=== PATIENT | female | born 1945 | race Caucasian/White ===

== ENCOUNTER 2020-06-19 14:59 | Inpatient (IN) | payer MEDICARE ==
[~2020-06-19] VITALS: Ht 157.5 cm; Wt 59.4 kg
[2020-06-19 15:50] LABS: BASOPHILS % (AUTO) 0.9 % (0.0-5.0); HEMATOCRIT 29.6 % (36-48); LYMPHOCYTES % (AUTO) 23.6 % (21.0-51.0); MEAN CORPUSCULAR HEMOGLOBIN 26.9 pg (27.0-33.0); MEAN CORPUSCULAR HGB CONC 30.4 g/dL (32.0-36.0); MEAN CORPUSCULAR VOLUME 88.6 fL (79-99); MONOCYTES % (AUTO) 13.7 % (3.0-13.0); NEUTROPHILS % (AUTO) 55.4 % (40.0-77.0); PLATELET COUNT (AUTO) 209 K/uL (130-400); RED BLOOD CELL COUNT(AUTO) 3.34 MIL/uL (4.00-5.50); RED CELL DISTRIBUTION WIDTH 16.3 % (11.0-15.5); WHITE BLOOD COUNT (AUTO) 4.5 K/uL (4.8-10.8)
[2020-06-19 16:09] LABS: PROTHROMBIN TIME 10.9 SEC (9.6-11.6)
[2020-06-19 16:10] LABS: CREATININE 0.9 mg/dL (0.5-1.5)
[2020-06-19 16:11] LABS: PARTIAL THROMBOPLASTIN TIME 21.4 SEC (26.3-35.5)
[2020-06-19 16:15] LABS: ALBUMIN 3.2 g/dL (3.5-5.0); BILIRUBIN,TOTAL 0.6 mg/dL (0.2-1.0); TOTAL PROTEIN, SERUM 6.3 g/dL (6.0-8.3)
[2020-06-19] MEDS ORDERED: ONDANSETRON 4MG INJ ONE (16:51)
[2020-06-19] MEDS ORDERED: MORPHINE 4 MG SYG ONE (16:52)
[2020-06-19] MEDS: 0.9%NACL 1000ML 1,000 ML IV SCH (18:15)
[2020-06-19] MEDS ORDERED: ACETAMINOPHEN 325 MG TAB PO PRN ×2 (18:15)
[2020-06-19] MEDS ORDERED: ONDANSETRON 4MG INJ IV PRN (18:15)
[2020-06-19 18:43] LABS: RETICULOCYTE % (AUTO) 1.4 % (0.42-2.23)
[2020-06-19 18:55] LABS: HEMOGLOBIN A1C 5.5 % (4.0-6.0)
[2020-06-19] MEDS ORDERED: IOHEXOL-350 75 ML VIAL IV ONE (19:52)
[2020-06-19] MEDS ORDERED: FAMOTIDINE 20MG VIAL IV ONE (20:56)
[2020-06-19] MEDS ORDERED: APIXABAN 2.5 MG TABLET PO ONE (20:56)
[2020-06-19] MEDS ORDERED: 0.9%NACL 1000ML 1,000 ML IV ONE (20:57)
[2020-06-19] MEDS: APIXABAN 5 MG TABLET PO SCH (21:00)
[2020-06-19] MEDS: FAMOTIDINE 20MG VIAL IV SCH (21:00)
[2020-06-20 03:15] VITALS: BP 141/45
[2020-06-20] MEDS: MORPHINE 2 MG SYG IV PRN ×4 (04:01→22:16)
[2020-06-20 06:45] LABS: BASOPHILS % (AUTO) 1.1 % (0.0-5.0); EOSINOPHILS % (AUTO) 5.7 % (0.0-8.0); HEMATOCRIT 30.5 % (36-48); LYMPHOCYTES % (AUTO) 20.7 % (21.0-51.0); MEAN CORPUSCULAR HEMOGLOBIN 27.4 pg (27.0-33.0); MEAN CORPUSCULAR HGB CONC 30.8 g/dL (32.0-36.0); MEAN CORPUSCULAR VOLUME 88.9 fL (79-99); MONOCYTES % (AUTO) 10.3 % (3.0-13.0); NEUTROPHILS % (AUTO) 61.8 % (40.0-77.0); PLATELET COUNT (AUTO) 176 K/uL (130-400); RED BLOOD CELL COUNT(AUTO) 3.43 MIL/uL (4.00-5.50); RED CELL DISTRIBUTION WIDTH 15.9 % (11.0-15.5); WHITE BLOOD COUNT (AUTO) 4.6 K/uL (4.8-10.8)
[2020-06-20 07:00] LABS: ALBUMIN 3.1 g/dL (3.5-5.0); BILIRUBIN,TOTAL 0.7 mg/dL (0.2-1.0); CREATININE 0.9 mg/dL (0.5-1.5); POTASSIUM 5.1 mmol/L (3.5-5.1); TOTAL PROTEIN, SERUM 6.1 g/dL (6.0-8.3)
[2020-06-20 08:00] VITALS: BP 146/43
[2020-06-20 08:30] LABS: ERYTHROCYTE SEDIMENTATION RATE 12 MM/HR (0-30)
[2020-06-20] MEDS: FAMOTIDINE 20MG VIAL IV SCH ×2 (09:08→21:07)
[2020-06-20] MEDS: 0.9%NACL 1000ML 1,000 ML IV SCH ×2 (09:08→21:09)
[2020-06-20] MEDS: APIXABAN 5 MG TABLET PO SCH ×2 (09:08→21:07)
[2020-06-20 12:00] VITALS: BP 123/54
[2020-06-20] MEDS ORDERED: ATOR20TA65 PO (13:15)
[2020-06-20] MEDS ORDERED: LEFL20TA18 PO (13:15)
[2020-06-20] MEDS ORDERED: LOSA1TAB54 PO (13:15)
[2020-06-20] MEDS ORDERED: METF-444 PO (13:15)
[2020-06-20] MEDS ORDERED: CARV25TA PO (13:15)
[2020-06-20] MEDS ORDERED: PRAM0.5T12 PO (13:15)
[2020-06-20] MEDS ORDERED: DOXA2TAB2 PO (13:15)
[2020-06-20] MEDS ORDERED: AEC81 PO (13:15)
[2020-06-20 16:00] VITALS: BP 156/70
[2020-06-20 19:35] VITALS: BP 159/63
[2020-06-20 23:28] VITALS: BP 124/84
[2020-06-21 00:30] VITALS: BP 167/70
[2020-06-21] MEDS: MORPHINE 2 MG SYG IV PRN (03:01)
[2020-06-21 04:09] VITALS: BP 175/55
[2020-06-21 07:02] LABS: BASOPHILS % (AUTO) 0.9 % (0.0-5.0); EOSINOPHILS % (AUTO) 4.8 % (0.0-8.0); HEMATOCRIT 30.3 % (36-48); LYMPHOCYTES % (AUTO) 20.3 % (21.0-51.0); MEAN CORPUSCULAR HEMOGLOBIN 26.9 pg (27.0-33.0); MEAN CORPUSCULAR VOLUME 86.8 fL (79-99); MONOCYTES % (AUTO) 12.8 % (3.0-13.0); PLATELET COUNT (AUTO) 214 K/uL (130-400); RED BLOOD CELL COUNT(AUTO) 3.49 MIL/uL (4.00-5.50); RED CELL DISTRIBUTION WIDTH 15.9 % (11.0-15.5); WHITE BLOOD COUNT (AUTO) 4.4 K/uL (4.8-10.8)
[2020-06-21 07:16] LABS: CREATININE 0.8 mg/dL (0.5-1.5); POTASSIUM 4.1 mmol/L (3.5-5.1)
[2020-06-21] MEDS ORDERED: APIX5TAB PO (08:28)
[2020-06-21] MEDS: FAMOTIDINE 20MG VIAL IV SCH (10:04)
[2020-06-21] MEDS: APIXABAN 5 MG TABLET PO SCH (10:04)
[2020-06-21 10:32] VITALS: BP 105/78
== END 2020-06-21 10:30 | disposition home or self-care (01) | DRG 301 ==
LOC: EDH 14:59 → EDHIP 18:15 → 3AH 06-20 02:33
PROVIDERS: ADMIT Internal Medicine; ATTEND Internal Medicine
DX: I82.401 Acute embolism and thrombosis of unspecified deep veins of right lower extremity (principal); D64.9 Anemia, unspecified; E11.9 Type 2 diabetes mellitus without complications; I10 Essential (primary) hypertension; E78.5 Hyperlipidemia, unspecified; E78.00 Pure hypercholesterolemia, unspecified; G89.29 Other chronic pain; Z87.891 Personal history of nicotine dependence; Z90.710 Acquired absence of both cervix and uterus
CPT/HCPCS: 36415; 71045; 71275; 80048; 80053; 82550; 82948; 83036; 83540; 83550; 84145; 84484; 85025; 85045; 85610; 85651; 85730; 93005; 93970; G0378; J2270; J2405; J3490; J7030; Q9967

== ENCOUNTER → 2020-06-19 | Outpatient (CLI) | payer MEDICARE ==
[~2020-06-19] MED LIST: AEC81 PO; APIX5TAB PO; ATOR20TA65 PO; CARV25TA PO; DOXA2TAB2 PO; LEFL20TA18 PO; LOSA1TAB54 PO; METF-444 PO; PRAM0.5T12 PO
== END | disposition home or self-care (01) ==
LOC: RAH 13:40
PROVIDERS: ATTEND Internal Medicine Cardiovascular Disease
DX: I82.4Y1 Acute embolism and thrombosis of unspecified deep veins of right proximal lower extremity (principal); R60.9 Edema, unspecified
CPT/HCPCS: 93970